=== PATIENT | female | born 1955 | race Caucasian/White ===

== ENCOUNTER 2018-01-19 11:01 | Emergency (ER) | payer MEDICAID ==
[~2018-01-19] VITALS: Ht 188 cm; Wt 90.7 kg
[2018-01-19 11:06] VITALS: BP 161/102; Ht 188 cm; Wt 90.7 kg
== END 2018-01-19 11:40 | disposition home or self-care (01) ==
LOC: ED 11:01
DX: N39.0 Urinary tract infection, site not specified (principal); I10 Essential (primary) hypertension; Z90.49 Acquired absence of other specified parts of digestive tract

== ENCOUNTER 2019-03-20 01:00 | Emergency (ER) | payer MEDICAID ==
[~2019-03-20] VITALS: Ht 160 cm; Wt 76.2 kg
[2019-03-20 05:03] VITALS: BP 155/89
== END 2019-03-20 05:03 | disposition home or self-care (01) ==
LOC: ED 01:00
DX: K21.9 Gastro-esophageal reflux disease without esophagitis (principal); I10 Essential (primary) hypertension

== ENCOUNTER 2019-08-15 15:03 | Inpatient (IN) | payer MEDICAID ==
[~2019-08-15] VITALS: Ht 165.1 cm; Wt 88.2 kg
--- NOTE | 2019-08-15 17:10 | NUR ---
PT BIB SELF C/C ABD PAIN X 1 MONTH STS OFF AND ON DR FELIX AT BEDSIDE TO LEXI
--- NOTE | 2019-08-15 17:11 | NUR ---
TRANSITION OF CARE SPECIALIST AT BEDSIDE FOR BLOOD DRAW
--- NOTE | 2019-08-15 17:16 | NUR ---
PLEASE ENTER FULL NAMES OF CHOCOLATE MAKER/RN Patient data collected by (CHOCOLATE MAKER):LOUIS MILLER Assessment reviewed and completed by (RN): SRI JAIMES
[2019-08-15 17:22] LABS: BASOPHIL % 0.1 % (0-2); PLATELET COUNT 277 x10^3mcL (130-400); RED CELL DISTRIBUTION WIDTH 13.7 % (11.5-14.5)
[2019-08-15 17:36] LABS: CALCIUM 8.8 mg/dL (8.5-10.1); CARBON DIOXIDE 26.3 mmol/L (21-32); CREATININE SERUM 1.2 mg/dL (0.6-1.0); POTASSIUM SERUM 3.9 mmol/L (3.5-5.1)
[2019-08-15 17:40] LABS: ALBUMIN 3.7 g/dL (3.4-5.0); BILIRUBIN TOTAL 0.31 mg/dL (0.20-1.00); TOTAL PROTEIN, SERUM 8.1 g/dL (6.4-8.2)
--- NOTE | 2019-08-15 17:55 | NUR ---
TAKEN TO RADIOLOGY FOR CT
--- NOTE | 2019-08-15 18:14 | NUR ---
BACK FROM CT
--- NOTE | 2019-08-15 18:50 | NUR ---
IV ATB STARTED
[2019-08-15 18:53] LABS: UA SPECIFIC GRAVITY >=1.030 (1.005-1.035); microscopic required? YES; urine erythrocyte 1+ (NEGATIVE)
--- NOTE | 2019-08-15 20:24 | NUR ---
PATIENT SEEN RESTING, EXPRESS RIGHT SIDE PAIN , MILD.
--- NOTE | 2019-08-15 20:25 | NUR ---
FLUID AND ANTIBIOTIC INFUSED.
--- NOTE | 2019-08-15 21:11 | NUR ---
REPORT WAS GIVEN TO TREY. PATIENT TRANSPORTED TO ROOM 252B.
--- NOTE | 2019-08-15 21:30 | NUR ---
RECEIVED PT FROM ED [facility]IA [employer], CAME IN DUE TO ABDOMINAL PAIN. AAOX4. DENIES HEADACHE/DIZZINESS. ABLE TO FOLLOW COMMANDS. NO SOB NOTED, LUNG SOUNDS CTA. DENIES CHEST PAIN/PRESSURE, SR ON THE MONITOR. HAD X2 DIARRHEAL EPISODES TODAY, C/O 7/10 UPPER ABDOMINAL PAIN RADIATING TO THE BACK AND ON THE CHEST AT TIMES. VOIDS. IV SITE PATENT AND INTACT. SIDE RAILS UPX2. CALL LIGHT ON REACH. PRIMARY NURSE TREY AT BEDSIDE FOR CONTINUITY OF CARE
[2019-08-15 21:35] VITALS: BP 105/66
[2019-08-15 21:37] VITALS: Ht 165.1 cm; Wt 88.2 kg
[2019-08-15 21:50] LABS: MAGNESIUM 2.3 mg/dL (1.8-2.4); PHOSPHOROUS 4.6 mg/dL (2.5-4.9)
[2019-08-15] MEDS ORDERED: FAMOTIDINE40 MG (21:50)
[2019-08-15] MEDS ORDERED: GOOD SENSE OMEP20 MG (21:50)
[2019-08-15] MEDS ORDERED: NOR5 (21:51)
[2019-08-15] MEDS ORDERED: CARAFATE1 GM (21:51)
[2019-08-15] MEDS ORDERED: BENAZEPRIL HYDR40 M1 (21:51)
[2019-08-15 21:55] LABS: CHOLESTEROL/HDL RATIO 3.3
--- NOTE | 2019-08-15 22:07 | NUR ---
PT RESTING COMFORTABLY IN BED. NO ACUTE DISTRESS NOTED. EVEN AND UNLABORED RESPIRATIONS ON RA. ON TELE# 26 READING SR 64. IV PATENT AND INTACT RUNNING FLUIDS PER EMAR. CLEAR LIQUID DIET IN PLACE. INSTRUCTED PT ON NEED OF URINE AND STOOL SAMPLE, COLLECTION CONTAINER IN BATHROOM, PT VERBALIZED UNDERSTANDING. C/O / PAIN MEDICATED PER EMAR. BED IN LOWEST POSITION. SIDE RAILS UPX2. CALL LIGHT WITHIN REACH. WILL CONTINUE TO MONITOR.
--- NOTE | 2019-08-16 00:30 | NUR ---
MADE AWARE PT HAD RUN OF VTACH 9 BEATS. VS CHECKED: BP: 82/48 (59) HR: 64. NO C/O CHEST PAIN/PRESSURE. PT ABLE TO AMBULATE TO RESTROOM, PROVIDED URINE AND STOOL SAMPLE, WILL SEND TO LAB. PT TOLERATED WELL. MADE AWARE. WILL CONTINUE TO MONITOR.
[2019-08-16 05:13] VITALS: BP 96/52
--- NOTE | 2019-08-16 06:18 | NUR ---
PT SLEPT IN INTERVALS THROUGHOUT THE SHIFT. ALL NEEDS TENDED TO AND MET. ALL SCHEDULED MEDICATIONS GIVEN. EVEN AND UNLABORED RESPIRATIONS ON RA. ON TELE# 26 READING SB 56, HAD 9 BEATS OF PVC'S IN A ROW, BP:82/59, MD AWARE. C/O RUQ ABD PAIN, BACK PAIN MEDICATED PER EMAR. NEW IV TO RFA PATENT AND INTACT RUNNING FLUIDS PER EMAR. LATEST BP: 96/52 (66). BED IN LOWEST POSITION. SIDE RAILS UPX2. CALL LIGHT WITHIN REACH. WILL ENDORSE TO ONCOMING SHIFT.
[2019-08-16 06:57] VITALS: BP 101/59
--- NOTE | 2019-08-16 07:10 | NUR ---
RECEIVED PT FROM DAYRON RN. PT AA/OXDesirae LAYING IN BED. NO S/S OF ACUTE DISTRESS. DENIES PAIN AT THIS TIME. NO SOB ON ROOM AIR. DENIES CHEST PAIN. IV WNL TO RFA, NO REDNESS, NO SWELLING, NO INFILTRATION. IVF FLOWING. CALM/COOPERATIVE. INSTRUCTED TO USE CALL LIGHT TO CALL FOR ASSISTANCE PRN. PT VERBALIZED UNDERSTANDING. BED IN LOW POSITION. CALL LIGHT WITHIN REACH. WILL CONT. TO MONITOR.
[2019-08-16 07:39] LABS: PLATELET COUNT 218 x10^3mcL (130-400); RED CELL DISTRIBUTION WIDTH 13.5 % (11.5-14.5)
[2019-08-16 07:47] LABS: BASOPHIL % 0 % (0-2)
[2019-08-16 08:02] VITALS: BP 120/63
[2019-08-16 08:46] LABS: CALCIUM 8.3 mg/dL (8.5-10.1); CARBON DIOXIDE 26.7 mmol/L (21-32); CHLORIDE SERUM 101 mmol/L (98-107); CREATININE SERUM 0.9 mg/dL (0.6-1.0); GFR1 > 60 mL/min; GLUCOSE SERUM 115 mg/dL (74-106); MAGNESIUM 2.2 mg/dL (1.8-2.4); POTASSIUM SERUM 4.2 mmol/L (3.5-5.1); SODIUM SERUM 133 mmol/L (136-145)
[2019-08-16 11:32] VITALS: BP 113/68
--- NOTE | 2019-08-16 11:55 | NUR ---
PT RESTING IN BED WITH BOTH EYES CLOSED. NO S/S OF PAIN AT THIS TIME. NO S/S OF ACUTE DISTRESS. NO SOB ON ROOM AIR. CALM/COOPERATIVE. BED IN LOW POSITION. CALL LIGHT WITHIN REACH. WILL CONTINUE TO MONITOR.
[2019-08-16 16:11] VITALS: BP 120/72
--- NOTE | 2019-08-16 18:29 | NUR ---
PT LAYING PT LAYING IN BED. DENIES CHEST PAIN. NO SOB ON ROOM AIR. VS STABLE. NO S/S OF ACUTE DISTRESS. TOLERATING CLEAR LIQUID DIET WELL. NO N/V. C/O BM X3 LOOSE TODAY. DR. ASHRAF AWARE. IV WNL TO RFA, IVF FLOWING. CALM/COOPERATIVE. BED IN LOW POSITION. CALL LIGHT WITHIN REACH. WILL ENDORSE TO ONCOMING SHIFT.
--- NOTE | 2019-08-16 19:20 | NUR ---
RECEIVED PT FROM AM NURSE, PT LAYING DOWN IN BED. PT AAOX4, ABLE TO FOLLOW COMMANDS AND MAKE NEEDS KNOWN. ON TELE#26 READING SR, DENIES CP/PRESSURE AT THIS TIME. PALPABLE PULSES TO ALL EXTREMETIES. NO EDEMA NOTED. LUNG SOUNDS CTA, BREATHING EVEN AND UNLABORED ON RA. NO SOB NOTED. NO ACUTE DISTRESS NOTED. ABD SONF AND NONDISTENDED. ACTIVE BS X4 QUAD. PT C/O LOOSE STOOLS. LAST BM 08/16/19. VOIDS FREELY, BRP. AMBULATORY. DENIES ANY PAIN AT THIS TIME. IV TO RFA INFUSING NS AT 125ML/HR, SITE WNL. BED AT LOWEST SETTING. SIDE RAILS X2 UP. CALL LIGHT WITHING REACH. WILL CONT TO MONITOR.
[2019-08-16 20:16] VITALS: BP 118/67
--- NOTE | 2019-08-17 00:18 | NUR ---
PT LAYING DOWN IN BED WITH EYES CLOSED, BREATHING EVEN AND UNLABORED ON RA. NO ACUTE DISTRESS NOTED. NS INFUSING AT 125ML/HR TO RFA. BED AT LOWEST SETTING. SIDE RAILS X2 UP. CALL LIGHT WITHING REACH. WILL CONT TO MONITOR.
[2019-08-17 05:12] VITALS: BP 132/71
--- NOTE | 2019-08-17 06:38 | NUR ---
PT SLEPT WELL THROUGHOUT THE NIGHT, BREATHING EVEN AND UNLBORED ON RA. NO SIGNIFICANT CHANGES DURING SHIFT. PT DENIES ANY PAIN AT THIS TIME. IV TO RFA INFUSING AT 125ML/HR, SITE WNL. ALL NEEDS ASSESSED AND ATTENED TO. NO ACUTE DISTRESS NOTED. BED AT LOWEST SETTING. SIDE RAILS X2 UP. CALL LIGHT WIHTING REACH. WILL CONT TO MONITOR AND ENDORSE CARE TO AM NURSE.
--- NOTE | 2019-08-17 07:25 | NUR ---
RECEIVED PT'S REPORT FROM LEAVING NURSE. PT REST ON BED AA/O X4, CHADIAN SPEAKING. PT DENIED PAIN AND OTHER DISCOMFORT AT THIS TIME. PT BREATHING ON RA, EVEN, UNLABORED. IV SITE PATENT, INTACT, IVF INFUSING WELL. WILL CONTINUE PT'S CARE.
[2019-08-17 09:13] VITALS: BP 115/60
--- NOTE | 2019-08-17 11:35 | NUR ---
DR. TAPIA ASSESSED PT AT BEDSIDE, AND TALKED TO PT ABOUT EGD AND COLONOSCOPY PROCEDURE. WILL OBTAIN PROCEDURE CONSENT PER HOLLIER.
[2019-08-17 12:19] VITALS: BP 121/59
[2019-08-17 17:03] VITALS: BP 150/81
--- NOTE | 2019-08-17 17:44 | NUR ---
OBTAINED PT'S CONSENT FOR EGD AND COLONOSCOPY FOR TOMORROW WITH TRANSLATION PHONE. STARTED PT BOWEL PREP. PT NO COMPLAIN OF ABD PAIN, NAUSEA THROUGH SHIFT. WILL ENDORSE ONCOMING NURSE TO FINISH CHECK LIST AND BOWEL PREP.
--- NOTE | 2019-08-17 19:20 | NUR ---
RECEIVED PT FROM AM NURSE, PT LAYING DOWN IN BED. PT AAOX4, ABLE TO FOLLOW COMMANDS AND MAKE NEEDS KNOWN. MED-SURG, DENIES CP/PRESSURE AT THIS TIME. PALPABLE PULSES TO ALL EXTREMETIES. NO EDEMA NOTED. LUNG SOUNDS CTA, BREATHING EVEN AND UNLABORED ON RA. NO SOB NOTED. NO ACUTE DISTRESS NOTED. ABD SOFT AND NONDISTENDED. PT ON BOWEL PREP AT THIS TIME. HAVING LOOSE STOOLS. VOIDS FREELY, BRP. AMBULATORY. DENIES ANY PAIN AT THIS TIME. IV TO RFA INFUSING NS AT 125ML/HR, SITE WNL. BED AT LOWEST SETTING. SIDE RAILS X2 UP. CALL LIGHT WITHING REACH. WILL CONT TO MONITOR.
[2019-08-17 20:31] VITALS: BP 111/68
--- NOTE | 2019-08-17 20:45 | NUR ---
SECOND BOWEL PREP GIVEN AT THIS TIME. PT STATES STOOL IS YELLOW IN COLOR. DENIES N/V OR ABD PAIN. NO ACUTE DISTRESS NOTED. WILL CONT TO MONITOR.
--- NOTE | 2019-08-18 00:12 | NUR ---
PT LAYING DOWN IN BED WITH EYES CLOSED, BREATHING EVEN AND UNLABORED ON RA. NO ACUTE DISTRESS NOTED. BED AT LOWEST SETTING. SIDE RAILS X2 UP. CALL LIGHT WITHING REACH. WILL CONT TO MONITOR.
--- NOTE | 2019-08-18 04:01 | NUR ---
PT C/O EPIGASTRIC PAIN 01/21, MEDICATED WITH PRN NORCO PER OCT. NO ACUTE DISTRESS NOTED. WILL CONT TO MONITOR.
[2019-08-18 06:18] LABS: BASOPHIL % 0.2 % (0-2); PLATELET COUNT 221 x10^3mcL (130-400); RED CELL DISTRIBUTION WIDTH 13.7 % (11.5-14.5)
[2019-08-18 06:23] LABS: CALCIUM 8.1 mg/dL (8.5-10.1); CARBON DIOXIDE 25.7 mmol/L (21-32); CHLORIDE SERUM 106 mmol/L (98-107); CREATININE SERUM 0.7 mg/dL (0.6-1.0); GFR1 > 60 mL/min; GLUCOSE SERUM 111 mg/dL (74-106); POTASSIUM SERUM 3.9 mmol/L (3.5-5.1); SODIUM SERUM 140 mmol/L (136-145)
--- NOTE | 2019-08-18 06:48 | NUR ---
PT SLEPT AT INTERVALS THROUGHOUT THE NIGHT, BREATHING EVEN AND UNLABORED ON RA. NO SIGNIFICANT CHANGES DURING NIGHT. CHG PRE-OP BATH GIVEN. PT KEPT NPO FOR PROCEDURE. ALL NEEDS ASSESSED AND ATTENDED TO. BED AT LOWEST SETTING. SIDE RAILS X2 UP. CALL LIGHT WITHING REACH. WILL CONT TO MONITOR AND ENDORSE CARE TO AM NURSE.
[2019-08-18 06:50] VITALS: BP 127/62
--- NOTE | 2019-08-18 07:30 | NUR ---
RECIEVED REPORT FROM [facility] NURSE JEFF. IV TO THE LEFT FOREARM IS INFILTRATED. NEW IV PLACED TO THE RIGHT UPPER ARM- 24 GUAGE. PATIENT RETRIEVED FOR EGD. CHECKLIST AND CONSENT SIGNED AND PLACED IN PATIENT'S CHART. BOWEL PREP COMPLETED.
[2019-08-18 08:00] VITALS: BP 141/76
--- NOTE | 2019-08-18 09:48 | NUR ---
RECIEVED REPORT FROM GI REGARDING PATIENT. PATIENT TO BE RETURNING TO UNIT IN FIVE MINUTES. EGD REVEALED SEVERE ATYPICAL GASTRITIS AND MILD DIVERTICULITIS. STABLE VITAL SIGNS POST PROCEDURE REPORTED BY ABBY GI NURSE. CURRENTLY ANTICIPATING RETURN OF PATIENT.
--- NOTE | 2019-08-18 10:00 | NUR ---
PATIENT ARRIVED TO THE UNIT FROM GI LAB. PATIENT REPORTS NO PAIN. PATIENT IS STABLE.
[2019-08-18] MEDS ORDERED: LEVOFLOXACIN500 M1 PO (10:31)
[2019-08-18 10:45] VITALS: BP 141/76
[2019-08-18 10:55] VITALS: BP 141/76
--- NOTE | 2019-08-18 11:41 | NUR ---
DISCHARGE INSTRUCTIONS AND EDUCATION GIVEN AND EXPLAINED TO PATIENT. SISTER AT BEDSIDE TO TAKE PATIENT HOME. PATIENT UNDERSTANDS TO FOLLOW UP WITH HER PCP PROVIDER IN 2-3DAYS. IV REMOVED INTACT, ALL ID TAGS REMOVED FROM PATIENT . PATIENT ACCOMPANIED TO THE THE LOBBY BY RON.
== END 2019-08-18 11:43 | disposition home or self-care (01) | DRG 241 ==
LOC: ED 15:03 → MU 20:38 → DU 20:38 → MU 08-17 12:41
PROVIDERS: Emergency Medicine; Internal Medicine; ADMIT Internal Medicine
PROC: 0DB68ZX Excision of Stomach, Via Natural or Artificial Opening Endoscopic, Diagnostic (ICD-10-PCS; principal; 2019-08-18 08:30)
PROC: 0DJD8ZZ Inspection of Lower Intestinal Tract, Via Natural or Artificial Opening Endoscopic (ICD-10-PCS; 2019-08-18 08:30)
DX: K29.70 Gastritis, unspecified, without bleeding (principal); N17.0 Acute kidney failure with tubular necrosis; N10 Acute pyelonephritis; K57.92 Diverticulitis of intestine, part unspecified, without perforation or abscess without bleeding; E87.1 Hypo-osmolality and hyponatremia; A08.4 Viral intestinal infection, unspecified; I10 Essential (primary) hypertension; E86.0 Dehydration; K76.0 Fatty (change of) liver, not elsewhere classified; K21.9 Gastro-esophageal reflux disease without esophagitis; Z68.29 Body mass index [BMI] 29.0-29.9, adult
CPT/HCPCS: 43235; 45378; 87046; 87046-59; 88344; C9113; G0378; J0696; J1200; J1610; J2250; J2310; J3010; J3490; J7030; J7060; Q0092

== ENCOUNTER 2019-08-24 12:55 | Inpatient (IN) | payer MEDICAID ==
[~2019-08-24] VITALS: Ht 165.1 cm; Wt 87.1 kg
[~2019-08-24 12:55] MED LIST: BENAZEPRIL HYDR40 M1; CARAFATE1 GM; FAMOTIDINE40 MG; GOOD SENSE OMEP20 MG; LEVOFLOXACIN500 M1 PO; NOR5
--- NOTE | 2019-08-24 13:08 | NUR ---
EKG IN PROGRESS BY JUAN LUIS
--- NOTE | 2019-08-24 13:52 | NUR ---
MEDICATED PER MD ORDERS- SEE EMR
[2019-08-24 14:08] LABS: BASOPHIL % 0.3 % (0-2); PLATELET COUNT 282 x10^3mcL (130-400); RED CELL DISTRIBUTION WIDTH 14.1 % (11.5-14.5)
--- NOTE | 2019-08-24 14:16 | NUR ---
PATIENT LYING ON GURNEY- BREATHING E/U - WILL CONTINUE TO MONITOR.
[2019-08-24 14:36] LABS: CALCIUM 8.8 mg/dL (8.5-10.1); CARBON DIOXIDE 29.9 mmol/L (21-32); CREATININE SERUM 1.2 mg/dL (0.6-1.0); POTASSIUM SERUM 3.9 mmol/L (3.5-5.1)
[2019-08-24 14:44] LABS: ALBUMIN 3.4 g/dL (3.4-5.0); BILIRUBIN TOTAL 0.3 mg/dL (0.20-1.00)
--- NOTE | 2019-08-24 15:51 | NUR ---
RESIDENT MD BEDSIDE PROVIDING MSE
--- NOTE | 2019-08-24 16:00 | NUR ---
PROVIDED REPORT TO YVONNE HARDING FOR CONTINUED CARE OF PATIENT.
--- NOTE | 2019-08-24 16:15 | NUR ---
PT WAS RECEIVED BY PRIMARY NURSE GABRIEL FROM ED VIA [employer], CAME IN DUE TO CHEST AND BACK PAIN. AAOX4. DENIES HEADACHE/DIZZINESS. ABLE TO FOLLOW COMMANDS. C/O 7/10 PRESSURE NECK PAIN, ABLE TO MOVE NECK FROM SIDE TO SIDE. C/O 5/10 UPPER CHEST PAIN DESCRIBED PRESSURE, SR ON THE MONITOR. NO SOB NOTED, LUNG SOUNDS CTA. O2 SAT=97%, RA. DENIES ABDOMINAL PAIN/NAUSEA/VOMITING. STATED THAT SHE HAS DIARRHEAL EPISODES X1 WEEK, HAD 3 EPISODES TODAY. ABDOMEN IS SOFT. VOIDS. IV SITE PATENT AND INTACT. SIDE RAILS UPX2. CALL LIGHT ON REACH. ENDORSED TO PRIMARY NURSE GABRIEL FOR CONTINUITY OF CARE
[2019-08-24 16:51] VITALS: BP 103/61
[2019-08-24 16:56] VITALS: Ht 165.1 cm; Wt 87.1 kg
--- NOTE | 2019-08-24 18:08 | NUR ---
IV INFILTRATED. IV DISCONTINUED. WILL LOOK FOR NEW SITE
--- NOTE | 2019-08-24 19:20 | NUR ---
RECEIVED PT FROM AM NURSE, YVONNE RIOS. PT AWAKE LAYING DOWN IN BED. AAOX4, ABLE TO FOLLOW COMMANDS, AND MAKE NEEDS KNOWN. TELE#23 READING SR. DENIES CP/PRESSURE AT THIS TIME. PALPALE PULSES TO ALL EXTREMETIES, NO EDEMA NOTED. LUNG SOUNDS CTA, BREATHING EVEN AND UNLABORED ON RA. ABD SOFT AND NONDISTENDED. ACTIVE BS X4 QUAD, DENIES N/V. C/O HAVING DIARRHEA FOR THE LAST WEEK. VOIDS FREELY, BRP. AMBULATORY. C/O 6/10 BACK PAIN, NO ALLEVIATING FACTORS. WILL MEDICATE ACCORDINGLY. IV TO LH INFUSING NS AT 100 ML/HR. SITE WNL. BED AT LOWEST SETTING. SIDE RAILS X2 UP. CALL LIGHT WITHING REACH. WILL CONT TO MONITOR.
[2019-08-24 20:49] VITALS: BP 95/55
--- NOTE | 2019-08-24 20:50 | NUR ---
PT C/O 01/21 BACK PAIN DESCRIBED AT ACHING. MEDICATED WITH PRN NORCO PER OCT. NO ACUTE DISTRESS NOTED. WILL CONT TO MONITOR.
--- NOTE | 2019-08-24 21:45 | NUR ---
PT C/O INSOMNIA, RECEIVED ORDER FROM DR WILSON FOR ATIVAN PO. ORDER CLARIFIED WITH DRAnu PER DR RDZ TO GIVE ATIVAN FOR INSOMNIA. ATIVAN GIVEN PER OCT. NO ACUTE DISTRESS NOTED. WILL CONT TO MONITOR.
[2019-08-24 23:02] LABS: microscopic required? NO
[2019-08-24 23:20] LABS: urine erythrocyte NEGATIVE (NEGATIVE)
[2019-08-25 05:18] VITALS: BP 93/50
--- NOTE | 2019-08-25 05:46 | NUR ---
PT SLEPT AT INTERVALS THROUGHOUT NIGHT, BREATHING EVEN AND UNLABORED ON RA. NO SIGNIFICANT CHANGES DURING SHIFT. PT CONT TO C/O BACK PAIN, STATES PAIN IS TOLERABLE AT THIS TIME AND DOES NOT WANT PAIN MEDICATION. ALL NEEDS ASSESSED AND ATTENDED TO. IV TO LH INFUSING NS AT 100ML/HR. SITE WNL. NO ACUTE DISTRESS NOTED. BED AT LOWEST SETTING. SIDE RAILS X2 UP. CALL LIGHT WITHING REACH. WILL CONT TO MONITOR AND ENDORSE CARE TO AM NURSE.
[2019-08-25 06:45] LABS: BASOPHIL % 0.3 % (0-2); PLATELET COUNT 255 x10^3mcL (130-400)
[2019-08-25 06:57] LABS: CALCIUM 8.3 mg/dL (8.5-10.1); CARBON DIOXIDE 27.6 mmol/L (21-32); CHLORIDE SERUM 104 mmol/L (98-107); CREATININE SERUM 0.8 mg/dL (0.6-1.0); GFR1 > 60 mL/min; GLUCOSE SERUM 103 mg/dL (74-106); PHOSPHOROUS 3.9 mg/dL (2.5-4.9); POTASSIUM SERUM 4.5 mmol/L (3.5-5.1); SODIUM SERUM 139 mmol/L (136-145)
--- NOTE | 2019-08-25 07:20 | NUR ---
SEEN AOX4, NOT IN DISTRESS, SUBJECTIVE COMPLAINTS OF NECK AND CHEST PAIN, RRR, PALPABLE PULSES, NO EDEMA, CTA ON BLF, TENDERNESS ON PALPATION OF CHEST, + BS, VOIDS WITH NO DYSURIA, GENERALIZED WEAKNESS, FULL ROM, SKIN DRY AND INTACT, NS INFUSING WELL AT 100CC/HR, NO REDNESS OR INFITLRATION. CALL LIGHT WITHIN REACH. BED AT LOWEST POSITION
--- NOTE | 2019-08-25 09:00 | NUR ---
DR SUÁREZ ROUNDS WITH TEAM. DR ROWAN MADE AWARE OF BUN CREATININE RESULT. DR ROWAN WILL CHECK TO SEE IF BENAZEPRIL WILL BE RESUMED.
--- NOTE | 2019-08-25 09:10 | NUR ---
SEEN AOX4, NOT IN DISTRESS, COMPLAINTS OF PAIN AT CHEST AND NECK , PAIN UPON PALPATION ON CHEST. TYLENOL GIVEN. BP 108/62, HR 67. PO MEDICATIONS GIVEN PRESCRIBED. BENAZEPRIL ON HOLD . DR ROWAN MADE AWARE OF BUN CREATININE RESULTS.
[2019-08-25 09:37] VITALS: BP 112/66
--- NOTE | 2019-08-25 12:08 | NUR ---
SEEN AOX4. NOT IN DISTRESS. LIDOCAINE PATCH APPLIED TO PAIN SITE. NS REPLACED. IV INFUSING WELL AT 100CC/HR. NO REDNESS OR INFILTRATION. FAMILY AT BEDSIDE . QUESTIONS ADDRESSED. CALL LIGHT WITHIN REACH. BED AT LOWEST POSITION.
[2019-08-25 13:26] VITALS: BP 125/59
[2019-08-25 17:04] VITALS: BP 95/64
--- NOTE | 2019-08-25 19:42 | NUR ---
RECEIVED PT FROM AM NURSE, YVONNE RIOS. PT AWAKE LAYING DOWN IN BED. AAOX4, ABLE TO FOLLOW COMMANDS, AND MAKE NEEDS KNOWN. TELE#23 READING SR. DENIES CP/PRESSURE AT THIS TIME. PALPALE PULSES TO ALL EXTREMETIES, NO EDEMA NOTED. LUNG SOUNDS CTA, BREATHING EVEN AND UNLABORED ON RA. ABD SOFT AND NONDISTENDED. ACTIVE BS X4 QUAD, DENIES N/V. C/O HAVING DIARRHEA FOR THE LAST WEEK BEFORE ADMISSION. LAST BM 08/24. VOIDS FREELY, BRP. AMBULATORY. C/O 10/21 UPPER BACK PAIN, NO ALLEVIATING FACTORS. WILL MEDICATE ACCORDINGLY. IV TO LH FLUSHING WELL. SALINE LOCKED. SITE FREE FROM REDNESS AND SWELLING. BED AT LOWEST SETTING. SIDE RAILS X2 UP. CALL LIGHT WITHING REACH. WILL CONT TO MONITOR.
[2019-08-25 20:10] VITALS: BP 113/64
--- NOTE | 2019-08-25 21:10 | NUR ---
PT C/O ANXIETY AND UNABLE TO SLEEP, MEDICATED WITH PRN ATIVAN PER MAR. NO ACUTE DISTRESS NOTED. WILL CONT TO MONITOR.
--- NOTE | 2019-08-26 00:05 | NUR ---
PT AWAKE, LAYING DOWN IN BED, BREATHING EVEN AND UNLABORED ON RA. NO ACUTE DISTRESS NOTED. DENIES ANY PAIN. SAFETY PRECAUTIONS IN PLACE. CALL LIGHT WITHING REACH. WILL CONT TO MONITOR.
[2019-08-26 05:46] VITALS: BP 133/754
--- NOTE | 2019-08-26 05:54 | NUR ---
PT SLEPT AT INTERVALS THROUGHOUT THE NIGHT, BREATHING EVEN AND UNLABORED ON RA. NO SIGNIFICANT CHANGES DURING SHIFT. PT DENIES ANY PAIN AT THIS TIME. STOOL SAMPLES SENT TO LAB. ALL NEEDS ASSESSED AND ATTENDED TO. BED AT LOWEST SETTING. SIDE RAILS X2 UP. CALL LIGHT WITHING REACH. WILL CONT TO MONITOR AND ENDORSE CARE TO AM NURSE.
--- NOTE | 2019-08-26 07:00 | NUR ---
RECEIVED REPORT FROM NIGHT NURSE PATIENT LYING IN BED A&O X4 DENIES ANY PAIN AT THIS TIME. ON TELE 23 NSR. LUNGS CTA ON RA 98% LUNGS CTA BILAT. ACTIVE SOUNDS IN ALL 4 QUADS. IV ON L HAND PATENT AND INTACT NO REDNESS OR EDEMA. ALL QUESTIONS AND CONCERNS ADDRESSED AT THIS TIME. BED IN LOWEST POSITION CALL LIGHT WITHIN REACH. WILL CONTINUE TO MONITOR.
[2019-08-26 07:11] LABS: BASOPHIL % 0.4 % (0-2); PLATELET COUNT 247 x10^3mcL (130-400); RED CELL DISTRIBUTION WIDTH 14.2 % (11.5-14.5)
[2019-08-26 07:12] LABS: CALCIUM 8.9 mg/dL (8.5-10.1); CARBON DIOXIDE 29.7 mmol/L (21-32); CHLORIDE SERUM 99 mmol/L (98-107); CREATININE SERUM 0.8 mg/dL (0.6-1.0); GFR1 > 60 mL/min; GLUCOSE SERUM 94 mg/dL (74-106); PHOSPHOROUS 3.5 mg/dL (2.5-4.9); POTASSIUM SERUM 4.2 mmol/L (3.5-5.1); SODIUM SERUM 133 mmol/L (136-145)
--- NOTE | 2019-08-26 08:53 | NUR ---
PATIENT C/O 12/21 HEADACHE ADMINISTERED TYLENOL PO PER OCT PATIENT TOLERATED WELL NO ADVERSE REACTIONS NOTED. PATIENT DENIES ANY CHEST PAIN AT THIS TIME. ALL QUESTIONS AND CONCERNS ADDRESSED AT THIS TIME. BED IN LOWEST POSITION CALL LIGHT WITHIN REACH. WILL CONTINUE TO MONITOR.
[2019-08-26 09:08] VITALS: BP 147/71
[2019-08-26] MEDS ORDERED: TYLENOL325 M1 PO (12:16)
[2019-08-26] MEDS ORDERED: NOVAPLUS LIDOCAINE5% TOP (12:18)
--- NOTE | 2019-08-26 12:30 | NUR ---
Patient lying in bed denies c/o headache 10/21 offered medication patient refused offered ice or warm pack patient also refused. All needs addressed at this time. Patient denies any chest pain at this time. Bed in lowest position call light within reach. Will continue to monitor.
[2019-08-26 12:52] VITALS: BP 125/73
--- NOTE | 2019-08-26 13:01 | NUR ---
ECHO PENDING, PT HAVING LUNCH
[2019-08-26 13:31] VITALS: BP 125/73
--- NOTE | 2019-08-26 13:44 | NUR ---
Dr King informed of positive stool blood occult. No new orders at this time.
--- NOTE | 2019-08-26 15:51 | NUR ---
PATIENT LYING IN BED TALKING ON HER PHONE NO S/S OF ANY ACUTE DISTRESS AT THIS TIME. PATIENT DENIES ANY CHEST PAIN OR PRESSURE AT THIS TIME. ALL QUESTINS AND CONCERNS ADDRESSED AT THIS TIME. BED IN LOWEST POSITIN CALL LIGHT WITHIN REACH. WILL CONTINUE TO MONITOR.
[2019-08-26] MEDS ORDERED: GOOD SENSE OMEP20 MG PO (15:57)
--- NOTE | 2019-08-26 16:18 | NUR ---
DR ASHRAF AT BEDSIDE UPDATING PATIENT ON CARE AND DISCHARGE. PATIENT VERBALIZED UNDERSTANDING. ALL QUESTIONS AND CONCERS ADDRESSED.
--- NOTE | 2019-08-26 16:35 | NUR ---
DISCHARGE INSTRUCTIONS GIVEN PATIENT VERBALIZED UNDERSTANDING. IV D/C'D DRESSING APPLIED PATIENT TOLERATED WELL NO EDEMA OR REDNESS. PATIENT STABLE FOR DISCHARGE. PATIENT DENIES ANY PAIN AT THIS TIME. ALL QUESTIONS AND CONCERNS ADDRESSED. ALL PERSONAL BELONGINGS TAKEN WITH PATIENT. ESCORTED PATIENT TO LOBBY FOR HER RIDE TO PICK HER UP.
== END 2019-08-26 16:45 | disposition home or self-care (01) | DRG 244 ==
LOC: ED 12:55 → DU 15:15
PROVIDERS: Emergency Medicine; ADMIT Family Medicine
DX: K57.92 Diverticulitis of intestine, part unspecified, without perforation or abscess without bleeding (principal); N17.0 Acute kidney failure with tubular necrosis; R07.89 Other chest pain; E87.1 Hypo-osmolality and hyponatremia; K76.0 Fatty (change of) liver, not elsewhere classified; K52.9 Noninfective gastroenteritis and colitis, unspecified; E86.0 Dehydration; K21.9 Gastro-esophageal reflux disease without esophagitis; I10 Essential (primary) hypertension; Z79.899 Other long term (current) drug therapy; Z68.34 Body mass index [BMI] 34.0-34.9, adult
CPT/HCPCS: 83880; 87046; 87046-59; G0378; J7030

== ENCOUNTER 2020-06-24 11:06 | Emergency (ER) | payer MEDICAID, SELFPAY ==
[~2020-06-24] VITALS: Ht 160 cm; Wt 88.5 kg
[~2020-06-24 11:06] MED LIST changes: +GOOD SENSE OMEP20 MG PO; +NOVAPLUS LIDOCAINE5% TOP; +TYLENOL325 M1 PO
[2020-06-24 11:19] VITALS: Ht 160 cm; Wt 88.5 kg
[2020-06-24 11:59] LABS: BASOPHIL % 0.3 % (0-2); PLATELET COUNT 170 x10^3mcL (130-400); RED CELL DISTRIBUTION WIDTH 14.3 % (11.5-14.5)
[2020-06-24 12:12] LABS: CALCIUM 8.6 mg/dL (8.5-10.1); CARBON DIOXIDE 30.9 mmol/L (21-32); POTASSIUM SERUM 4.3 mmol/L (3.5-5.1)
[2020-06-24 12:18] LABS: ALBUMIN 3.9 g/dL (3.4-5.0); BILIRUBIN TOTAL 0.5 mg/dL (0.20-1.00); TOTAL PROTEIN, SERUM 7.9 g/dL (6.4-8.2)
[2020-06-24 14:07] LABS: microscopic required? YES; urine erythrocyte NEGATIVE (NEGATIVE)
[2020-06-24 15:19] VITALS: BP 104/72
== END 2020-06-24 15:21 | disposition home or self-care (01) ==
LOC: ED 11:06
PROVIDERS: Emergency Medicine
DX: U07.1 COVID-19 (principal); I10 Essential (primary) hypertension; K21.9 Gastro-esophageal reflux disease without esophagitis
CPT/HCPCS: 36600; 83880; 85378; 87804; J1885; J7030; U0003

== ENCOUNTER 2020-06-26 04:59 | Emergency (ER) | payer MEDICAID, SELFPAY ==
[~2020-06-26] VITALS: Ht 157.5 cm; Wt 86.2 kg
[2020-06-26 05:00] VITALS: Ht 157.5 cm; Wt 86.2 kg
[2020-06-26 06:11] VITALS: BP 112/72
== END 2020-06-26 06:11 | disposition home or self-care (01) ==
LOC: ED 04:59
DX: R05 Cough (principal); Z20.828 Contact with and (suspected) exposure to other viral communicable diseases; I10 Essential (primary) hypertension; K21.9 Gastro-esophageal reflux disease without esophagitis
CPT/HCPCS: J1885; Q0162